=== PATIENT | male | born 1995 | race American Indian/Alaskan Native ===

== ENCOUNTER 2016-12-13 22:47 | Emergency (ER) | payer OTHER ==
[~2016-12-13] VITALS: Ht 170.2 cm; Wt 67.0 kg
[2016-12-13 22:55] VITALS: BP 122/77
[2016-12-13] MEDS ORDERED: LIDOCAINE 1%, 20ML ONE (23:39)
[2016-12-13] MEDS ORDERED: HYDROcodone/APAP 5/325 TABLET ONE (23:39)
[2016-12-13] MEDS ORDERED: DIPH,PERTUSS(ACELL),TET VAC/PF 0.5 ML IM-VACC ONE (23:40)
[2016-12-14] MEDS ORDERED: DIPH,PERTUSS(ACELL),TET VAC/PF 0.5 ML IM-VACC ONE
[2016-12-14] MEDS ORDERED: LIDOCAINE 1%, 20ML SQ ONE
[2016-12-14] MEDS ORDERED: HYDROcodone/APAP 5/325 TABLET PO ONE
[2016-12-14] MEDS ORDERED: BACITRACIN ZINC OINT 500U/GM, 0.9 GM ONE ×2 (00:07→00:42)
== END 2016-12-14 03:35 | disposition home or self-care (01) ==
LOC: ED 23:59
DX: S61.011A Laceration without foreign body of right thumb without damage to nail, initial encounter (principal); X58.XXXA Exposure to other specified factors, initial encounter; Y93.89 Activity, other specified; Y99.8 Other external cause status; Y92.89 Other specified places as the place of occurrence of the external cause
CPT/HCPCS: 12001; 90471; 90715